=== PATIENT | male | born 1970 | race Two or more races ===

== ENCOUNTER 2017-06-02 00:48 | Emergency (ER) | payer MEDICAID ==
[~2017-06-02] VITALS: Ht 167.6 cm; Wt 77.1 kg
[2017-06-02 02:47] VITALS: BP 100/71
--- NOTE | 2017-06-02 03:26 | NUR ---
DR. HAMMOND AT BEDSIDE FOR EVAL.
== END 2017-06-02 03:35 | disposition home or self-care (01) ==
LOC: ER 00:51
DX: K64.4 Residual hemorrhoidal skin tags (principal)
CPT/HCPCS: 99282; A4606; J7030; Z7610